=== PATIENT | female | born 1990 | race Caucasian/White ===

== ENCOUNTER 2019-04-27 19:06 | Emergency (ER) | payer MEDICAID, OTHER ==
[~2019-04-27] VITALS: Ht 162.6 cm; Wt 81.2 kg
[2019-04-27 19:35] VITALS: BP 116/80
--- NOTE | 2019-04-27 19:38 | NUR ---
TO LOBBY A/W BED , AMBULATORY
--- NOTE | 2019-04-27 20:47 | NUR ---
PT AMBULATED TO BED 3
--- NOTE | 2019-04-27 20:55 | NUR ---
PT C/O GENERALIZED BODY WEAKNESS, NAUSEA, VOMITING, DIARRHEA X 2 DAYS. X3 EPISODES OF VOMITING TODAY AND X2 EPISODES OF DIARRHEA. DENIES COUGH, FEVER, HEADACHE, CHILLS. LMP 04/01/19. PT STATES NON COMPLIANT WITH IRON MEDICATION. RR EVEN AND UNLABORED. ABD SOFT ROUND NON TENDER, BOWEL SOUNDS PRESENT X4 QUAD. PT SITTING IN BED CALM AND PLEASANT. VSS. MEDHX: ANEMIA ALLERGIES: DENIES
--- NOTE | 2019-04-27 22:09 | NUR ---
PT RESTING IN BED, BED LOCKED AND IN LOW POSITION. VSS. WILL CONTINUE TO MONITOR.
[2019-04-27] MEDS ORDERED: NACL 0.9% 1,000 ML IV ONE (22:15)
[2019-04-27 22:37] LABS: BASOPHILS % (AUTO) 0.3 % (0.0-2.0); EOSINOPHILS # (AUTO) 0.1 K/uL (0-0.4); EOSINOPHILS % (AUTO) 1.5 % (0.0-4.0); HEMATOCRIT 38.2 % (36-48); HEMOGLOBIN 12.1 g/dL (12.0-16.0); LYMPHOCYTES # (AUTO) 1.1 K/uL (2.5-16.5); LYMPHOCYTES % (AUTO) 14.1 % (20.5-51.1); MEAN CORPUSCULAR HEMOGLOBIN 21 pg (27-31); MEAN CORPUSCULAR HGB CONC 32 g/dL (33-37); MEAN CORPUSCULAR VOLUME 67.4 fL (80-94); MONOCYTES # (AUTO) 0.5 K/uL (0.8-1.0); MONOCYTES % (AUTO) 6.3 % (1.7-9.3); NEUTROPHILS # (AUTO) 6.3 K/uL (1.8-7.7); NEUTROPHILS % (AUTO) 77.8 % (42.2-75.2); PLATELET COUNT (AUTO) 117 K/uL (140-450); RED BLOOD CELL COUNT(AUTO) 5.67 MIL/uL (4.20-5.40); RED CELL DISTRIBUTION WIDTH 15.2 % (11.6-13.7); WHITE BLOOD COUNT (AUTO) 8.1 K/uL (4.8-10.8)
[2019-04-27 22:49] LABS: ANION GAP 13.8 (8-16); CARBON DIOXIDE 28.1 mmol/L (21-32); CREATININE 0.8 mg/dL (0.6-1.3); POTASSIUM 3.9 mmol/L (3.5-5.1)
[2019-04-27 23:00] LABS: ALBUMIN 3.7 g/dL (3.4-5.0); TOTAL BILIRUBIN 0.5 mg/dL (0.0-1.0)
[2019-04-27 23:56] VITALS: BP 116/80
--- NOTE | 2019-04-27 23:57 | NUR ---
Patient discharged with v/s stable. Written and verbal after care instructions given and explained. Patient alert, oriented and verbalized understanding of instructions. Ambulatory with steady gait. All questions addressed prior to discharge. ID band removed. Patient advised to follow up with PMD. Rx of FERROUS SULFATE 200MG given. Patient educated on indication of medication including possible reaction and side effects. Opportunity to ask questions provided and answered. DISCHARGED BY DR SOW
[2019-04-29 09:30] LABS: FOLIC ACID 5.1 ng/mL (>3.0)
== END 2019-04-27 23:57 | disposition home or self-care (01) ==
LOC: MED 19:06
DX: D50.9 Iron deficiency anemia, unspecified (principal); R11.2 Nausea with vomiting, unspecified; R19.7 Diarrhea, unspecified
CPT/HCPCS: 36415; 80053; 82607; 82728; 82746; 83540; 83625; 85025; 85045; 96360; 99283; J7030